=== PATIENT | male | born 1945 | race Caucasian/White ===

== ENCOUNTER → 2016-07-26 | Outpatient (CLI) | payer OTHER ==
[~2016-07-26] MED LIST: ADULT LOW DOSE81 MG PO; CENTRUM TABLET1 TAB PO; CINNAMON; CO Q-10100 MG PO; FISH OIL 1,0001 EAC5 PO; FLOMAX PO; SIMVASTATIN40 MG PO; VITAMIN D400 UNI1 PO
== END ==
LOC: BC 10:11
DX: C50.922 Malignant neoplasm of unspecified site of left male breast (principal); N62 Hypertrophy of breast

== ENCOUNTER → 2016-12-26 | Outpatient (CLI) | payer OTHER | LOC: RAD 10:20 | DX: R92.8 Other abnormal and inconclusive findings on diagnostic imaging of breast (principal) ==

== ENCOUNTER → 2017-08-06 | Outpatient (CLI) | payer OTHER | LOC: RAD 13:24 | DX: R92.8 Other abnormal and inconclusive findings on diagnostic imaging of breast (principal); Z90.12 Acquired absence of left breast and nipple ==

== ENCOUNTER → 2021-01-06 | Outpatient (CLI) | payer OTHER | LOC: ULTRA 09:01 | PROVIDERS: ATTEND Nurse Practitioner | DX: M79.605 Pain in left leg (principal) ==